=== PATIENT | female | born 1965 | race Caucasian/White ===

== ENCOUNTER 2018-09-06 21:41 | Emergency (ER) | payer MEDICAID ==
[~2018-09-06] VITALS: Ht 167.6 cm; Wt 103.9 kg
[2018-09-06] MEDS ORDERED: TIROSINT13 MCG PO (22:04)
[2018-09-06] MEDS ORDERED: MONTELUKAST SOD10 MG PO (22:04)
[2018-09-06] MEDS ORDERED: VENTOLIN HFA18 GM INH (22:05)
[2018-09-06] MEDS ORDERED: IMITREX25 MG PO (22:06)
== END 2018-09-06 22:25 | disposition home or self-care (01) ==
LOC: ED 21:41
DX: S01.01XA Laceration without foreign body of scalp, initial encounter (principal); W22.8XXA Striking against or struck by other objects, initial encounter; J45.909 Unspecified asthma, uncomplicated; E03.9 Hypothyroidism, unspecified; Z88.5 Allergy status to narcotic agent; Z91.013 Allergy to seafood; Z79.899 Other long term (current) drug therapy
CPT/HCPCS: 99282